=== PATIENT | male | born 2000 | race Caucasian/White ===

== ENCOUNTER 2020-01-19 19:20 | Emergency (ER) | payer OTHER ==
[2020-01-19 19:33] VITALS: BP 118/67; PULSE 71; TEMP 98; BMI 21.4
== END 2020-01-19 20:44 | disposition home or self-care (01) ==
LOC: JERFT 19:20
DX: R07.9 Chest pain, unspecified (principal)
CPT/HCPCS: 71046-TC-FY; 93005; 93010; 99284-25